=== PATIENT | female | born 1990 | race Caucasian/White ===

== ENCOUNTER 2016-10-09 02:55 | Outpatient (CLI) | payer OTHER | END 2016-10-09 05:00 | disposition home or self-care (01) | LOC: OBC SRH 02:55 → OB SRH 02:57 → OBC SRH 05:00 | PROC: 4A0HXCZ Measurement of Products of Conception, Cardiac Rate, External Approach (ICD-10-PCS; principal; 2016-10-09) | DX: O47.1 False labor at or after 37 completed weeks of gestation (principal); Z3A.39 39 weeks gestation of pregnancy | CPT/HCPCS: 40003; 40016; 40021 ==

== ENCOUNTER 2016-10-14 15:34 | Outpatient (CLI) | payer OTHER | END 2016-10-14 16:40 | disposition home or self-care (01) | LOC: NST SRH 15:34 → OB SRH 15:36 → NST SRH 16:40 | PROC: 4A0HXCZ Measurement of Products of Conception, Cardiac Rate, External Approach (ICD-10-PCS; principal; 2016-10-14) | DX: O47.1 False labor at or after 37 completed weeks of gestation (principal); O48.0 Post-term pregnancy; Z3A.40 40 weeks gestation of pregnancy ==

== ENCOUNTER 2016-10-15 08:58 | Inpatient (IN) | payer OTHER ==
[2016-10-15] VITALS (7 sets, daily range): BP systolic 104–132; BP diastolic 56–79
[~2016-10-15] VITALS: Ht 159.4 cm; Wt 68.5 kg
[2016-10-16 00:30] VITALS: BP 118/82
[2016-10-16 09:35] VITALS: BP 129/75
--- NOTE | 2016-10-16 09:47 | Provider's Discharge Care Plan ---
Problem, Goal, Plan Problem List 1. Term delivered Goals: Improved health/wellness Instructions: Routine care 2. GBS carrier Goals: Improved health/wellness Instructions: Counselled re infant care.
--- NOTE | 2016-10-16 09:47 | Provider's Discharge Care Plan ---
Problem, Goal, Plan Problem List 1. Term delivered Goals: Improved health/wellness Instructions: Routine care 2. GBS carrier Goals: Improved health/wellness Instructions: Counselled re infant care.
--- NOTE | 2016-10-16 10:18 | DELIVERY SUMMARY ---
DELIVERY DATE: 10/16/2016 ATTENDING PHYSICIAN/PROVIDER: Phil Sheriff MD PROCEDURE: 1. Normal spontaneous vaginal delivery PREOPERATIVE DIAGNOSIS: 1. Term intrauterine in labor POSTOPERATIVE DIAGNOSIS: 1. Term intrauterine in labor ANESTHESIA: Epidural anesthesia ESTIMATED BLOOD LOSS: 300 mL CONDITION: Stable post-procedure. DESCRIPTION OF PROCEDURE: The patient presented in active labor at 7 cm with bulging bag of water. Epidural anesthesia was inserted. IV established and bag of water then ruptured with AROM and clear liquid. Variable decelerations were noted causing some concern, but heart rate continued to rebound well. There was steady progress of descent and normal spontaneous vaginal delivery with vertex presentation, and Apgars 9 and 9. Second-degree laceration noted and repaired with 3-0 chromic without complication. The placenta was delivered intact. No vaginal or cervical lacerations noted.
--- NOTE | 2016-10-16 10:22 | DISCHARGE SUMMARY ---
ADMIT DATE: 10/15/2016 DISCHARGE DATE: 10/16/2016 CHIEF COMPLAINT: Labor DISCHARGE DIAGNOSIS: 1. HISTORY OF PRESENT ILLNESS: A 26-year-old 2, para 1 EDC 10/13/2016 who presents to [facility] with q.2 minute contractions since 0600 on the day of admission. She also had irregular contractions for 1 week prior to this. history was unremarkable except for group B strep positive status. HOSPITAL COURSE: The patient was admitted and proceeded to normal spontaneous vaginal delivery without complication assisted with epidural. recovery was unremarkable. With group B strep positive status, the patient was given penicillin in labor. She received only one dose of antibiotic before the baby was born and on the day of discharge, the patient was tolerating oral intake well, ambulating and voiding, passing gas and pain was controlled with oral medications. was going well. DISCHARGE INSTRUCTIONS/MEDICATIONS: Disposition: Home. Discharge medications: FLOR pack with ibuprofen, vitamins and stool softeners. Special instructions: Routine post- care, instructions for close monitoring of baby given and alternative of staying in the hospital an additional day due to GBS positivity was offered, mother declines and chooses discharge home with close monitoring of baby's status. Will follow up with me for check in 6 weeks.
== END 2016-10-16 16:30 | disposition home or self-care (01) | DRG 560 ==
LOC: OBC SRH 08:58 → OB SRH 09:01 → OBC SRH 09:13 → OB SRH 09:13
PROVIDERS: ADMIT Family Medicine
PROC: 10E0XZZ Delivery of Products of Conception, External Approach (ICD-10-PCS; principal; 2016-10-15)
PROC: 0KQM0ZZ Repair Perineum Muscle, Open Approach (ICD-10-PCS; principal; 2016-10-15)
DX: O70.1 Second degree perineal laceration during delivery (principal); Z3A.40 40 weeks gestation of pregnancy; Z37.0 Single live birth; O48.0 Post-term pregnancy; O99.824 Streptococcus B carrier state complicating childbirth
CPT/HCPCS: 40011; 83411; 84043; 90001; 90074; 90155; 91004; 91162; 91163; 95059